=== PATIENT | female | born 1990 ===

== ENCOUNTER 2017-11-10 16:16 | Emergency (ER) | payer MEDICAID, OTHER ==
[2017-11-10 16:29] VITALS: TEMP 98.2; O2SAT 99
[2017-11-10] MEDS ORDERED: Lactated Ringer's 1,000 ML IV STA (16:42)
--- NOTE | 2017-11-10 16:58 | ED PDOC ---
HPI: Abdomen Time Seen by Provider: 11/10/17 16:36 Chief Complaint (Nursing): Abdominal Pain Chief Complaint (Provider): Abdominal Pain History Per: Patient History/Exam Limitations: no limitations Onset/Duration Of Symptoms: Days (x4), Gradual Current Symptoms Are (Timing): Still Present Location Of Pain/Discomfort: Suprapubic, Other (pelvic) Quality Of Discomfort: Cramping Associated Symptoms: Nausea. denies: Fever, Chills, Vomiting, Diarrhea, Constipation, Urinary Symptoms Additional Complaint(s): Yesi Freeman is a 27 year old female with a past medical history of asthma and is currently 19 weeks primip, who is presenting to the ED with complaints of worsening cramping pelvic pain, onset 4 days ago. Patient reports that the pain is the most severe today which is what prompted her ED visit. She reports thats he visited her doctor 3 days ago, who recommended she rest and drink fluids, which did not relieve her symptoms. Patient states she has some nausea, but denies any vomiting, diarrhea, constipation, fever, chills, urinary symptoms, vaginal discharge or bleeding. Of note, patient has hyperemesis gravidarum during her and takes phenergan as needed. PMD: Dr. Rivera Past Medical History Reviewed: Historical Data, Nursing Documentation, Vital Signs Vital Signs: Last Vital Signs Temp 98.2 F 11/10/17 16:24 Pulse 89 11/10/17 19:30 Resp 16 11/10/17 19:30 BP 103/69 11/10/17 19:30 Pulse Ox 99 11/10/17 19:58 - Medical History PMH: Asthma - Surgical History Surgical History: No Surg Hx - Family History Family History: States: CAD (father), Diabetes (mother) - Social History Current smoker - smoking cessation education provided: No Alcohol: None Drugs: Denies - Allergies Allergies/Adverse Reactions: Allergies Allergy/AdvReac Type Severity Reaction Status Date / Time naproxen Allergy RASH Verified 11/10/17 16:29 Review of Systems ROS Statement: Except As Marked, All Systems Reviewed And Found Negative Constitutional: Negative for: Fever, Chills Gastrointestinal: Positive for: Nausea. Negative for: Vomiting, Diarrhea, Constipation Genitourinary Female: Positive for: Pelvic Pain. Negative for: Vaginal Discharge, Vaginal Bleeding, Other (urinary symptoms) Physical Exam - Reviewed Nursing Documentation Reviewed: Yes Vital Signs Reviewed: Yes - Physical Exam Appears: Positive for: In Acute Distress (mild painful) Head Exam: Positive for: ATRAUMATIC, NORMOCEPHALIC Skin: Positive for: Warm, Dry Respiratory: Negative for: Wheezing, Respiratory Distress Gastrointestinal/Abdominal: Positive for: Tenderness (suprapublic area), Other ( gravid, less than 20 weeks). Negative for: Guarding, Rebound Back: Positive for: Normal Inspection. Negative for: Decreased ROM Lymphatic: Negative for: Adenopathy Neurologic/Psych: Positive for: Alert. Negative for: Motor/Sensory Deficits - Laboratory Results Result Diagrams: 11/10/17 16:56 11/10/17 16:56 - ECG O2 Sat by Pulse Oximetry: 99 (RA) Pulse Ox Interpretation: Normal Medical Decision Making Medical Decision Making: Time: 16:37 Impression: Pelvic pain during second trimester Differentials: UTI cystitis, enteritis, demise or distress, and dehydration Plan: --CMP --Magnesium --Phosphorous --ED Urine Dipstick --CBC --Lactated Ringer's 1,000 ml IV --Tylenol 975 mg PO --US, OB Ultrasound: FINDINGS: Fetus: Single live intrauterine gestation with a sonographic gestational age of 19 weeks 5 days (KEN 04/01/2018) by today's measurements. Heart rate: heart rate = 146 beats per minute. Presentation: Cephalic position. Placenta: The placenta is posterior without previa or evidence of abruption. Amniotic fluid: The amniotic fluid volume is subjectively within normal limits. Anatomy: The visualized anatomy appears normal. BIOMETRICS Gestational age: See "Fetus" above. KEN: See "Fetus" above. EFW: Estimated weight = 313 grams +/- 47 grams. MATERNAL: Uterus: No acute findings. Cervix: The cervix is closed and measures 4 cm in length. Free fluid: No pelvic free fluid is visualized. IMPRESSION: Single live IUP with a sonographic gestational age of 19 weeks 5 days. No evident acute abnormality DW pt findings and plan of care. Scribe Attestation: Documented by Evi Walters, acting as a scribe for Josie Li MD. Provider Scribe Attestation: All medical record entries made by the Scribe were at my direction and personally dictated by me. I have reviewed the chart and agree that the record accurately reflects my personal performance of the history, physical exam, medical decision making, and the department course for this patient. I have also personally directed, reviewed, and agree with the discharge instructions and disposition. Disposition - Clinical Impression Clinical Impression: Abdominal pain during Counseled Patient/Family Regarding: Studies Performed, Diagnosis, Need For Followup - Disposition Disposition: Routine/Home Disposition Time: 19:11 Condition: GOOD Additional Instructions: FOLLOW UP WITH YOUR DOCTOR IN 1-2 DAYS DRINK PLENTY OF HYDRATING FLUIDS AND REST. Round Ligament Pain You must carefully read the "Consumer Information Use and Disclaimer" below in order to understand and correctly use this information About this topic Round ligament pain is normal and often happens in the second three months of . When the round ligaments tighten quickly, you have sharp jabbing pain in your lower belly or groin area. Your round ligaments are thick bands of tissue that support your uterus or womb as your baby grows. They attach at the front part of your pelvis and the front part of your womb. You have round ligaments on both sides of your belly. You may have pain on just the right side or on both sides. You may feel pain in your groin. The pain most often comes on quickly and lasts only a few seconds. General Most of the time, these ligaments stretch and tighten slowly. When you are , your womb grows and causes the ligaments to stretch more and they may become strained. Then, if you move suddenly, the ligament may tighten quickly and cause you pain. Quick movements like a laugh, cough, or sneeze may cause the pain. Exercise, rolling over in bed, or standing up too quickly may also cause round ligament pain. Image(s) This is an image of a woman. There is a callout showing the round ligament that goes from her uterus to near her pelvic bone. What drugs may be needed? Your doctor may tell you to take drugs for pain such as acetaminophen (Tylenol) . Always check with your doctor before taking any drugs while you are . Will physical activity be limited? Exercises may help ease round ligament pain. Talk to your doctor about the best exercises for you while you are . Stretching exercises, yoga, and core exercises may help, but talk with your doctor before starting a new exercise program. Will there be any other care needed? Ask your doctor what you need to do when you go home. Make sure you ask questions if you do not understand what you need to do. If your doctor tells you to use heat, take a warm bath or put a heating pad on your stomach for no more than 20 minutes at a time. Never go to sleep with a heating pad on as this can cause foster. Change positions slowly. Bend and flex your hips to avoid pulling on the round ligaments. Lying down and resting with a pillow between your legs may help ease the pain. What problems could happen? Pain is due to a more serious problem. When do I need to call the doctor? Contractions every 10 minutes or more often that do not go away with position change or drinking water Very bad pain Low, dull back pain that does not go away Pressure in your pelvis that feels like your baby is pushing down A gush or constant trickle of watery or bloody fluid leaking from your vagina Cramps in your lower belly that come and go or are constant Little to no movement felt by baby in 2 hours. Your baby should move at least 10 times every 2 hours. Fever of 100.4F (38C) or higher Pain when passing urine Trouble walking Vaginal bleeding with or without pain After a car accident, fall, or trauma to your belly Having thoughts of harming yourself or others, or do not feel safe at home Where can I learn more? [employer] http://americanpregnancy.org/-health/ruhpm-xnusmfsq-sssm-during- / Consumer Information Use and Disclaimer: This information is not specific medical advice and does not replace information you receive from your health care provider. This is only a brief summary of general information. It does NOT include all information about conditions, illnesses, injuries, tests, procedures , treatments, therapies, discharge instructions or life-style choices that may apply to you. You must talk with your health care provider for complete information about your health and treatment options. This information should not be used to decide whether or not to accept your health care providers advice , instructions or recommendations. Only your health care provider has the knowledge and training to provide advice that is right for you. Instructions: Round Ligament Pain
[2017-11-10 17:06] LABS: BASO # 0.1 K/uL (0.0-0.2); BASO % 0.5 % (0.0-2.0); EOS % 0.4 % (0.0-4.0); LYMPH # 1.7 K/uL (1.0-4.3); LYMPH % 18.2 % (20.0-40.0); MEAN CELL VOLUME 81.9 fl (81.0-99.0); MEAN CORPUSCULAR HEMOGLOBIN 27.6 pg (27.0-31.0); MEAN CORPUSCULAR HGB CONC 33.7 g/dL (33.0-37.0); MEAN PLATELET VOLUME 8.9 fl (7.2-11.7); MONO # 0.5 K/uL (0.0-0.8); MONO % 4.9 % (0.0-10.0); NEUT # 7.2 K/uL (1.8-7.0); RBC 4.36 Mil/uL (3.80-5.20); RED CELL DISTRIBUTION WIDTH 14.8 % (11.5-14.5); WHITE BLOOD COUNT 9.5 K/uL (4.8-10.8)
[2017-11-10 17:10] LABS: ALB/GLOB RATIO 1.1 (1.0-2.1); ALBUMIN 3.4 g/dL (3.5-5.0); ALT/SGPT 42 U/L (9-52); AST/SGOT 30 U/L (14-36); BLOOD UREA NITROGEN 7 mg/dl (7-17); CALCIUM 9.5 mg/dL (8.4-10.2); GFR AFRICAN-AMERICAN > 60; GFR NON-AFRICAN AMERICAN > 60
[2017-11-10 17:44] LABS: SQUAMOUS EPITHIAL 23 /hpf (0-5); URINE BACTERIA OCC (<OCC); URINE BILIRUBIN NEGATIVE (NEGATIVE); URINE BLOOD NEGATIVE (NEGATIVE); URINE CLARITY TURBID (Clear); URINE COLOR AMBER (YELLOW); URINE GLUCOSE (UA) NEG (Normal); URINE LEUKOCYTE ESTERASE LARGE Leu/uL (Negative); URINE PROTEIN 30 mg/dL (NEGATIVE)
[2017-11-10 19:30] VITALS: BP 103/69; PULSE 89; RESP 16
--- NOTE | 2017-11-11 11:17 | US ---
PROCEDURE: OB Pelvic Ultrasound HISTORY: pelvic cramping r/o distress/demise LMP: 06/30/2017 suggesting estimated gestational age of 19 weeks 0 days. COMPARISON: None available. FINDINGS: UTERUS: A single viable intrauterine gestation is identified in cephalic lie with a posterior fundal placenta and an average ultrasonic age of 19 weeks 5 days based on biometry. No placental abruption or previa. Cervical length is normal at 4.0 cm with a closed internal cervical os appreciated. No gross myometrial lesion as imaged. Following mean biometry was obtained: Biparietal diameter 4.6 cm corresponds to 20 weeks 0 days. Head circumference 16.8 cm corresponds to the 19 weeks 3 days. Abdominal circumference 14.6 cm corresponds to the 19 weeks 6 days. Femur length 3.1 cm corresponds to 19 weeks 5 days. HC/AC ratio is within the normal range at 1.15 and estimated weight is 11 oz (3213.2 g). Estimated date of delivery 04/01/2018. cardiac tears recorded 146 beats per minute. A limited anatomical survey was performed revealing no prominent hydrocephalus. The nuchal fold was not demonstrated. Bilateral kidneys are identified as well as left-sided heart and stomach. The urinary bladder is identified an abdominal umbilical cord insertion appears unremarkable. Imaging of the spine is limited but with no gross abnormality evident as submitted. RIGHT OVARY: Not identified. LEFT OVARY: Not identified. FREE FLUID: None. OTHER FINDINGS: None. IMPRESSION: A single viable intrauterine gestation is identified with average age of 19 weeks 5 days which agrees with LMP derived dates of 19 weeks 0 days. cardiac activity 146 beats per minute. No placental abruption or previa. Limited anatomical survey. Follow-up full survey can be obtained electively as indicated.
== END 2017-11-10 19:30 | disposition home or self-care (01) ==
LOC: H.ER 16:16
DX: O26.892 Other specified pregnancy related conditions, second trimester (principal); Z3A.19 19 weeks gestation of pregnancy; O99.512 Diseases of the respiratory system complicating pregnancy, second trimester
CPT/HCPCS: 76815; 80053; 81003; 81025; 83735; 84100; 85025; 87086; 99284; J7120